=== PATIENT | male | born 1965 | race Caucasian/White ===

== ENCOUNTER 2016-12-02 17:18 | Emergency (ER) | payer MEDICAID ==
[~2016-12-02] VITALS: Ht 175.3 cm; Wt 77.0 kg
[2016-12-02 17:22] VITALS: Ht 175.3 cm; Wt 77.0 kg
--- NOTE | 2016-12-02 17:46 | EN ---
Date/Time of Note Date/Time of Note DATE: 12/02/16 TIME: 17:43 ER Progress Note This is a 51-year-old male with a history of gout presenting to the emergency department complaining of left dorsal foot/ ankle pain since last night without any trauma or injury. Patient states that this has occurred in the past in the same spot and was diagnosed with gout at all of you however he was never given any medications. Patient states the pain is severe, constant and he has restricted range of motion. He admits to having swelling. Patient states that he has not taken any medications today however he has taken medication that his friend gave him yesterday. ROS: 10 systems reviewed and are negative except as per history of present illness. Examination: mild erythema and swelling to the left lateral dorsal foot inferior to lateral malleolus Neurovascular intact Plan: This is likely recurrent gout due to physical examination and history of present illness. Patient was evaluated RME and will be transferred to ER to get pain relief and further management. INOCENCIA ALCARAZ PA-C Dec 02, 2016 17:46
--- NOTE | 2016-12-02 18:21 | ERA ---
ER Documentation Chief Complaint Date/Time DATE: 12/02/16 TIME: 18:17 Chief Complaint lt foot pain since last night h/o gout HPI 51-year-old male with right ankle pain and swelling. Denies any history of trauma. Denies history of gout but think that the symptoms may be because of gout. Denies drinking or purine intake recently. Denies similar symptoms in the past. Works in a restaurant. Pain is currently out of 10 and cannot walk on it. ROS All systems reviewed and are negative except as per history of present illness. Medications Home Meds Active Scripts Indomethacin* (Indocin*) 50 Mg Cap, 50 MG PO TID for 10 Days, CAP Prov:MELISSA SMILEY PA-C 12/02/16 Allergies Allergies: Coded Allergies: No Known Allergy (Unverified , 12/02/16) Physical Exam Vitals Vital Signs Date Time Temp Pulse Resp B/P Pulse Ox O2 Delivery O2 Flow Rate FiO2 12/02/16 17:22 99.6 112 20 168/90 99 Physical Exam Const: Well-developed and well-appearing 51-year-old male in no acute distress. Head: Atraumatic Eyes: Normal Conjunctiva ENT: Normal External Ears, Nose and Mouth. Neck: Full range of motion..~ No meningismus. Resp: Clear to auscultation bilaterally Cardio: Regular rate and rhythm, no murmurs Abd: Soft, non tender, non distended. Normal bowel sounds Skin: No petechiae or rashes Back: No midline or flank tenderness Ext: Swelling of the right ankle predominantly on the lateral aspect. No warmth to touch or hematoma noted. Mild erythema. Range of motion decreased in the right ankle secondary to pain. Patellar DTRs 2+. Ankle reflexes unobtainable. Mild to moderate tenderness to palpation. Neur: Awake and alert. Neurovascularly intact bilaterally. Psych: Normal Mood and Affect Results 24 hrs Laboratory Tests Test 12/02/16 20:00 Uric Acid 5.6mg/dl Current Medications Medications (Trade) Dose Ordered Sig/Elsy Route PRN Reason Start Time Stop Time Status Last Admin Dose Admin Ibuprofen (Motrin) 400 mg ONCE ONCE PO 12/02/16 18:30 12/02/16 18:31 DC 12/02/16 18:53 Procedures/MDM 51-year-old male presenting with pain and diminished range of motion the right ankle. Symptoms have happened before 3 years ago. Patient was given Motrin and no diagnosis was given or diagnostic tests taken. Patient has decreased range of motion secondary to pain. There is mild to moderate tenderness palpation of the ankle. There is no mechanism of injury. Patient's most likely diagnosis is gout versus pseudogout. We will go ahead and prescribe indomethacin. I have educated patient on lifestyle modifications and have advised him to follow-up with a primary care provider. Departure Diagnosis: Primary Impression: Gout Qualified Code: M10.9 - Gout of left ankle, unspecified cause, unspecified chronicity Additional Impressions: Gout attack Qualified Code: M10.9 - Acute gout of left ankle, unspecified cause Foot pain Qualified Code: M79.672 - Left foot pain Condition: Stable Referrals: [facility] Additional Instructions: Follow up with your PCP within the next 1-3 days for a more thorough evaluation and a possible referral to a specialist. Return the the emergency department immediately if symptoms worsen or change. If you have any questions regarding medications, ask your pharmacist or us before you leave. If any adverse reactions occur while taking your medications, discontinue the treatment and return to the emergency department immediately. Take your medications as directed, and complete the entire course of treatment. MELISSA SMILEY PA-C Dec 02, 2016 18:21
[2016-12-02] MEDS ORDERED: IBUPROFEN 200 MG TAB PO ONE (18:30)
--- NOTE | 2016-12-02 19:19 | RADRPT ---
PROCEDURE: X-ray left foot CLINICAL INDICATION: Swelling at the lateral mid foot TECHNIQUE: 3 views left foot COMPARISON: None FINDINGS: No acute fracture or dislocation. Reference marker is directed towards the lateral calcaneus, with mild soft tissue swelling, and otherwise, no evident underlying radiographic abnormality. IMPRESSION: No acute fracture. RPTAT: [facility] Physician Darnell Date Time Electronically viewed and signed by Reza Esparza Physician on 12/02/2016 19:18 RS/
--- NOTE | 2016-12-02 19:21 | RADRPT ---
PROCEDURE: X-ray left ankle. CLINICAL INDICATION: Swelling of the left ankle. TECHNIQUE: 3 views left ankle. COMPARISON: None FINDINGS: Reference marker is directed towards the distal left fibula, without evident underlying radiographic abnormality. Mild soft tissue swelling at the lateral mid foot, otherwise nonspecific. Likely rem ote injury at the tip of the left medial malleolus, with small heterotopic ossification. No acute f racture or dislocation. IMPRESSION: No acute fracture. RPTAT: [facility] Physician Darnell Date Time Electronically viewed and signed by Physician Darnell on 12/02/2016 19:20 RS/
[2016-12-02] MEDS ORDERED: IND50 PO ×2 (20:45→21:12)
[2016-12-02 21:17] VITALS: BP 132/78; PULSE 78; RESP 16; TEMP 98.1
== END 2016-12-02 21:18 | disposition home or self-care (01) ==
LOC: FTE 17:18
DX: M10.9 Gout, unspecified (principal)
CPT/HCPCS: 73610; 73630; 84560; Z7502; Z7610